=== PATIENT | male | born 1955 | race Caucasian/White ===

== ENCOUNTER 2018-11-21 10:36 | Inpatient (IN) | payer OTHER ==
[~2018-11-21] VITALS: Ht 172.7 cm; Wt 110.0 kg
[~2018-11-21 10:36] MED LIST: THE PO
[2018-11-21 11:40] LABS: CALCIUM 9.7 mg/dL (8.5-10.1); CARBON DIOXIDE 31.5 mmol/L (21-32); CHLORIDE SERUM 97 mmol/L (98-107); CREATININE SERUM 1.5 mg/dL (0.7-1.3); GFR1 50 mL/min; GLUCOSE SERUM 252 mg/dL (74-106); POTASSIUM SERUM 3.5 mmol/L (3.5-5.1); SODIUM SERUM 141 mmol/L (136-145)
[2018-11-21] MEDS ORDERED: COZ25 PO (11:51)
[2018-11-21] MEDS ORDERED: FLO4 PO (11:51)
[2018-11-21] MEDS ORDERED: APRISO0.375 G1 PO (11:51)
[2018-11-21 11:52] LABS: ALKALINE PHOSPHATASE 100 U/L (46-116); ALT/SGPT 21 U/L (16-63); AST/SGOT 17 U/L (15-37); BILIRUBIN TOTAL 0.9 mg/dL (0.20-1.00); C REACTIVE PROTEIN 8.5 mg/dL (<=0.9)
[2018-11-21] MEDS ORDERED: GLUCOVANCE1 TA2 PO (11:52)
[2018-11-21] MEDS ORDERED: LIPI20 PO (11:53)
[2018-11-21 11:54] LABS: CK-MB 4.3 ng/mL (0-3.6)
[2018-11-21] MEDS ORDERED: BAYER ASPIRIN C81 MG PO (11:54)
[2018-11-21] MEDS ORDERED: JARDIANCE10 MG PO (11:54)
[2018-11-21] MEDS ORDERED: MOBIC15 MG PO (11:54)
[2018-11-21 11:55] LABS: TOTAL PROTEIN, SERUM 8.5 g/dL (6.4-8.2)
[2018-11-21] MEDS ORDERED: CARVEDILOL3.125 M1 PO (11:55)
[2018-11-21 11:57] LABS: microscopic required? NO
[2018-11-21 11:59] LABS: T3 TOTAL 0.9 ng/mL
[2018-11-21 12:00] LABS: BASOPHIL % 0.1 % (0-2); PLATELET COUNT 258 x10^3mcL (130-400)
[2018-11-21 12:11] LABS: RED CELL DISTRIBUTION WIDTH 14.6 % (11.5-14.5)
[2018-11-21 12:17] LABS: FREE T4 0.95 ng/dL (0.76-1.46); FREE THYROXINE INDEX 2.5 ug/dL (1.4-4.5); T4(THYROXINE) 7.6 ug/dL (4.7-13.3)
[2018-11-21 12:34] LABS: urine erythrocyte NEGATIVE (NEGATIVE)
[2018-11-21 13:11] LABS: ERYTHROCYTE SED RATE 6 mm/hr (0-20)
[2018-11-21 15:10] LABS: CHOLESTEROL/HDL RATIO 3.9; PHOSPHOROUS 5.2 mg/dL (2.5-4.9)
[2018-11-21 15:43] VITALS: BP 156/62
[2018-11-21 15:52] VITALS: Ht 172.7 cm; Wt 110.0 kg
[2018-11-21 16:03] LABS: AMPHETAMINE QUAL UR POSITIVE (See below)
[2018-11-21 20:56] VITALS: BP 112/58
[2018-11-22 06:20] VITALS: BP 127/62
[2018-11-22 06:46] LABS: BASOPHIL % 0.5 % (0-2); PLATELET COUNT 210 x10^3mcL (130-400)
[2018-11-22 07:16] LABS: CALCIUM 8.4 mg/dL (8.5-10.1); CARBON DIOXIDE 27.8 mmol/L (21-32); CHLORIDE SERUM 108 mmol/L (98-107); CREATININE SERUM 1.2 mg/dL (0.7-1.3); GFR1 > 60 mL/min; GLUCOSE SERUM 108 mg/dL (74-106); PHOSPHOROUS 2.8 mg/dL (2.5-4.9); POTASSIUM SERUM 4.7 mmol/L (3.5-5.1); SODIUM SERUM 145 mmol/L (136-145)
[2018-11-22 08:25] LABS: RED CELL DISTRIBUTION WIDTH 14.8 % (11.5-14.5)
[2018-11-22 09:20] VITALS: BP 129/64
[2018-11-22 17:45] VITALS: BP 138/76
[2018-11-22 21:11] VITALS: BP 132/70
[2018-11-23 06:00] VITALS: BP 140/71
[2018-11-23 07:32] LABS: BASOPHIL % 0.2 % (0-2); PLATELET COUNT 225 x10^3mcL (130-400)
[2018-11-23 07:38] LABS: CALCIUM 8.1 mg/dL (8.5-10.1); CARBON DIOXIDE 25.1 mmol/L (21-32); CHLORIDE SERUM 108 mmol/L (98-107); CREATININE SERUM 1.1 mg/dL (0.7-1.3); GFR1 > 60 mL/min; GLUCOSE SERUM 101 mg/dL (74-106); PHOSPHOROUS 3.2 mg/dL (2.5-4.9); POTASSIUM SERUM 4.5 mmol/L (3.5-5.1); SODIUM SERUM 142 mmol/L (136-145)
[2018-11-23 07:39] LABS: RED CELL DISTRIBUTION WIDTH 14.6 % (11.5-14.5)
[2018-11-23 09:45] VITALS: BP 134/69
[2018-11-23 17:19] VITALS: BP 143/66
[2018-11-23 21:15] VITALS: BP 128/65
[2018-11-24 06:00] VITALS: BP 158/81
[2018-11-24 06:32] LABS: CALCIUM 8.2 mg/dL (8.5-10.1); CARBON DIOXIDE 26.8 mmol/L (21-32); CHLORIDE SERUM 104 mmol/L (98-107); GFR1 > 60 mL/min; GLUCOSE SERUM 141 mg/dL (74-106); POTASSIUM SERUM 4.3 mmol/L (3.5-5.1); SODIUM SERUM 138 mmol/L (136-145)
[2018-11-24 06:57] LABS: BASOPHIL % 0.3 % (0-2); PLATELET COUNT 201 x10^3mcL (130-400); RED CELL DISTRIBUTION WIDTH 14.5 % (11.5-14.5)
[2018-11-24 09:23] VITALS: BP 146/47
[2018-11-24] MEDS ORDERED: NORCO1 TA2 PO (10:27)
[2018-11-24] MEDS ORDERED: BACTROBAN21 (10:33)
[2018-11-24] MEDS ORDERED: HIBICLENS118 ML TOP (10:34)
[2018-11-24 11:43] VITALS: BP 146/47
== END 2018-11-24 14:34 | disposition home or self-care (01) | DRG 710 ==
LOC: ED 10:36 → MU 14:10 → DU 14:10 → MU 15:35
PROVIDERS: Specialist; Surgery; ADMIT Family Medicine
PROC: 0WUF0JZ Supplement Abdominal Wall with Synthetic Substitute, Open Approach (ICD-10-PCS; principal; 2018-11-22 15:00)
DX: A41.9 Sepsis, unspecified organism (principal); N17.0 Acute kidney failure with tubular necrosis; K42.0 Umbilical hernia with obstruction, without gangrene; E11.9 Type 2 diabetes mellitus without complications; F15.99 Other stimulant use, unspecified with unspecified stimulant-induced disorder; I10 Essential (primary) hypertension; R91.1 Solitary pulmonary nodule; Z68.37 Body mass index [BMI] 37.0-37.9, adult; Z79.84 Long term (current) use of oral hypoglycemic drugs
CPT/HCPCS: 36600; 82962; 84439; 97116-GP; 97530-GP; 99406; C1781; J0330; J2175; J2250; J2405; J2543; J2704; J2765; J3010; J3490; J7030; Q0092

== ENCOUNTER 2018-11-27 09:46 | Inpatient (IN) | payer OTHER ==
[~2018-11-27] VITALS: Ht 172.7 cm; Wt 106.0 kg
[~2018-11-27 09:46] MED LIST changes: +APRISO0.375 G1 PO; +BACTROBAN21; +BAYER ASPIRIN C81 MG PO; +CARVEDILOL3.125 M1 PO; +COZ25 PO; +FLO4 PO; +GLUCOVANCE1 TA2 PO; +HIBICLENS118 ML TOP; +JARDIANCE10 MG PO; +LIPI20 PO; +MOBIC15 MG PO; +NORCO1 TA2 PO
[2018-11-27 09:51] VITALS: Ht 172.7 cm; Wt 106.0 kg
[2018-11-27 10:22] LABS: CALCIUM 9.3 mg/dL (8.5-10.1); CARBON DIOXIDE 32.7 mmol/L (21-32); CREATININE SERUM 1.5 mg/dL (0.7-1.3)
--- NOTE | 2018-11-27 10:25 | NUR ---
DR VAZQUEZ COMPLETED MSE AND PER PT AND AT BEDSIDE PT WAS HERE LAST AND HAD HERNIA SURGERY, PT HAS MULTIPLE PAULO ACCROSS ABDOMEN, INTACT, NO DRAINAGE NOTED AT THIS TIME. PER PT HE HAS ONE BM SINCE HE HAS BEEN HOME FROM SURGERY, PT REPORTING VOMITING THAT STARTED YESTERDAY AND PT ONLY ATE JELLO, PAIN IS 5/10 AND HAS HAD MULTIPLE EPISODES OF BROWN VOMIT. PT IS ALERT AND ORRIENTED, BREATHING IS UNLABORED AND EVEN, REPORTS SHE DID NOT BRING THE PATIENTS MEDICATIONS BECAUSE SHE DOES NOT KNOW WHERE THEY ARE. PT ON INSPECTOR FINAL ASSEMBLY CONVEYOR LINE AND I WILL CONTINUE TO MONITOR PT.
[2018-11-27 10:27] LABS: BILIRUBIN TOTAL 0.5 mg/dL (0.20-1.00); TOTAL PROTEIN, SERUM 7.2 g/dL (6.4-8.2)
[2018-11-27 10:28] LABS: ALBUMIN 3.1 g/dL (3.4-5.0)
[2018-11-27 10:32] LABS: PLATELET COUNT 335 x10^3mcL (130-400)
[2018-11-27 10:47] LABS: RED CELL DISTRIBUTION WIDTH 14.6 % (11.5-14.5)
--- NOTE | 2018-11-27 11:14 | NUR ---
PT RESTING COMFORTABLY IN BED WITH AT BEDSIDE.
--- NOTE | 2018-11-27 11:33 | NUR ---
PT OFF THE FLOOR TO CT
[2018-11-27 12:10] LABS: BAND NEUTROPHIL 18 % (0-10); BASOPHIL 0 % (0-2); MONOCYTE 10 % (0-7); SEGMENTED NEUTROPHILS 62 % (37-75)
[2018-11-27 12:14] LABS: PLATELET MORPHOLOGY LARGE PLATELET SEEN; rbc morphology (normal/abnorm) NORMAL (NORMAL)
--- NOTE | 2018-11-27 13:59 | NUR ---
PT MED REC DONE BASED OF WHT PT CAN REMEMBER. PT UNSURE WHAT ALL MEDS HE TAKES
[2018-11-27 14:07] LABS: microscopic required? NO
--- NOTE | 2018-11-27 14:07 | NUR ---
CALLED REPORT TO MELVILMA, ALL QUESTIONS ADDRESSED AT THIS TIME.
[2018-11-27 14:21] LABS: UA SPECIFIC GRAVITY 1.015 (1.005-1.035); urine erythrocyte NEGATIVE (NEGATIVE)
[2018-11-27 15:30] VITALS: BP 134/77
--- NOTE | 2018-11-27 15:53 | NUR ---
RECEIVED PT FROM ER. PT ADMIT FOR SBO, PT IS A/O X4, VERBAL RESPONSIVE, BUT VERY DROWSY AT THIS MOMENT, LUNG SOUND DIM MONIKA BASE, DENY ANY SOB, PO2 100% IN ROOM AIR, PT DENY ANY CHEST PAIN OR DISCOMFORT, BOWEL SOUND PRESENT ALL 4 QUADRANTS, DISTENTED. THERE IS S/P SURGICAL WOUND AT MID ABD, STAPLE INTACT, CONSUMER RELATIONS SPECIALIST, PEDAL PUSLE PRESENT BOTH FEET, NO EDEMA, IV AT RIGHT AC, NO LEAKING, NO INFILTRAITON. THERE IS MULTIPLE RED DISCOLORATION SPOT AT MONIKA INNER THIGH. PT IS ON NG SUCTION. ALL ADLS ASSIST, ALL NEED MET, CALL LIGHT IN REACH, WILL CONTINUE TO MONITOR.
--- NOTE | 2018-11-27 17:02 | NUR ---
AT 1440 - PATIENT ARRIVED FROM ER. SETTLED IN BED AND ORIENTD TO SURROUNDINGS. ADMITTED WITH DX OF SMALL BOWEL OBSTRUCTION. PATIENT IS ORIENTED. NG TUBE TO R NARES CONNECTED TO LOW INTERMITTENT SUCTION. PATIENT HAS LARGE AMOUNTS OF BROWN ASPIRATE. ABDOMEN DISTENDED. BOWEL SOUNDS ACTIVE AND PATIENT PASSING GAS. SEEN BY MIHIR ROONEY. IV INFUSING NS AT 150 ML/HR FOR 1 L. AT 1500 - SEEN BY DR RICHARDSON. NG TUBE IRRIGATED BY DOCTOR AND RECONNECTED TO SUCTION. DR RICHARDSON NOTED SLIGHT REDDNESS AND INFLAMMATION OF SURGICAL INCISION. OPEN TO AIR. PAIENT WASHED AND MADE COMFORTABLE. AT 1600 - COMMENCED ON IV ROCEPHIN. FIRST DOSE IN PROGRESS. AT 1615 - TOTAL OF 800 ML OUT VIA NG TUBE SINCE ADMISSION TO FLOOR.
[2018-11-27 17:27] VITALS: BP 130/65
--- NOTE | 2018-11-27 18:52 | NUR ---
VSS. AFEBRILE. NO C/O PAIN. NG TUBE REMAINS ON LOW INTERMITTENT SUCTION WITH LESS ASPIRATE IN THE LAST 2 HOURS. IV INFUSING NS AT 150 ML/HR FOR 1 LITER THEN CHANGE TO 100ML/HR. VOIDING IN URINAL. NPO. WILL ENDORSE CARE TO NIGHT NURSE.
--- NOTE | 2018-11-27 19:30 | NUR ---
RECIEVED PATIENT AT START OF SHIFT SLEEPING, AROUSABLE WITH VERBAL STIMULI. PATIENT IS ALERT AND OREIENTED X4. DENIES PAIN. NO SOB ON RA, LUNGS DIMINISHED BILATERALLY. NG TUBE IN PLACE CONNECTED TO INTERMIITENT LOW SUCTION. DARK BROWN/GREEN FLUID DRAINING, 60 MLS IN CONTIANER AT START OF SHIFT. ABDOMEN IS DISTENDED BUT SOFT. BOWEL SOUNDS ACTIVE. LONG HORIZONTAL INCISION WITH PAULO IN PLACE, WELL APPROXIMATED ACROSS ABDOMEN FROM HERNIA REPAIR LAST WEEK. SLIGHT ERYTHEMA NOTED ACROSS INCISION, NO DRAINAGE. BELOW INCISION IS SOME SORT OF HEALING WOUND OF [place]OWN ORIGIN, PINK AND CLOSED. BOTH ARE CAROLINE. PULSES ARE STRONG. NO EDEMA NOTED. BED LOCKED AND IN LOWEST POSITION. CALL LIGHT AND BEDSIDE TABLE WITHIN REACH. BED LOCKED AND IN LOWEST POSITION. WILL CONTINUE TO MONITOR.
[2018-11-27 20:30] VITALS: BP 117/69
--- NOTE | 2018-11-27 20:30 | NUR ---
PATIENT'S CURRENT 02 SAT IS 86%. NC APPLIED AT 5L, INCREASING 02 SAT TO 92%. LUNGS ARE DIMINISHED BILATERALLY. WILL INFORM MD AND GET ORDER FOR RT PROTOCOL.
[2018-11-27 21:00] VITALS: BP 139/67
--- NOTE | 2018-11-27 22:10 | NUR ---
RT SAW PATIENT. PATIENT NOW AT 4L NC SATTING 95%. NO COMLAINT OF PAIN. APPEARS COMFORTABLE. CALL LIGHT WITHIN REACH.
[2018-11-28 04:58] VITALS: BP 139/67
--- NOTE | 2018-11-28 06:51 | NUR ---
PATIENT'S NG TUBE OUTPUT OVERNIGHT WAS 900 MLS OF DARK GREEN FLUID. PATIENT DENIES PAIN. NO SOB NOTED ON 4L NC, SATTING 94%. PATIENT PROVIDED WITH ORAL CARE. NO ACUTE EVENTS OVERNIGHT. WILL ENDORSE CARE TO MORNING NURSE.
[2018-11-28 06:55] LABS: CALCIUM 8.2 mg/dL (8.5-10.1); CARBON DIOXIDE 33.6 mmol/L (21-32); CHLORIDE SERUM 105 mmol/L (98-107); CREATININE SERUM 1.2 mg/dL (0.7-1.3); GFR1 > 60 mL/min; GLUCOSE SERUM 162 mg/dL (74-106); POTASSIUM SERUM 3.7 mmol/L (3.5-5.1); SODIUM SERUM 149 mmol/L (136-145)
--- NOTE | 2018-11-28 07:30 | NUR ---
RECEIVED PT IN BED A/A/OX4 DENIES ANY SANTANA. RESP EVEN AND UNLABORED WITH DIMINSIHED BS BILAT, ON O2 AT 4L/MIN VIA NC. DENIES ANY SOB/CP/PRESSURE. ENCOURAGE DEEP BREATHIGN EXERCISES. NGT TO RT NOSTRIL TO LIS WITH GREENISH BILISH DRAINAGE IN CANISTER. DENIES ANY N/V AT THIS TIME. ABD SLIGHTLY DISTENDED TENDER TO TOUCH WITH +BS. S/P HERNIA REPAIR LAST WEEK PRIOR TO ADMISION WITH LATERAL SX INCISION ACROSS ABD WITH PAULO, CAROLINE. FULL ACTIVE ROM WITH MILD GEN WEAKNESS, WITH ORDER FOR PT EVAL. DENIES ANY PAIN OR DISCOMFORT. CALL LIGHT IN REACH NEEDS ATTENDED TO.
[2018-11-28 07:43] LABS: PLATELET COUNT 259 x10^3mcL (130-400)
[2018-11-28 08:49] LABS: RED CELL DISTRIBUTION WIDTH 14.6 % (11.5-14.5)
[2018-11-28 09:46] VITALS: BP 140/70
--- NOTE | 2018-11-28 10:15 | NUR ---
NOTED ORDER TO D/C NGT. DR. RICHARDSON PAGE TO COMFIRM SINCE PT HAD LARGE OUTPUT FROM NGT THIS AM ABOUT 500ML ALREADY. WAS MADE AWARE THAT DR. RICHARDSON WAS IN OR WITH BACK TO BACK CASES. REQUESTED FOR MD TO CALL THE FLOOR WHEN HE HAD A CHANCE. NGT DISCONNECTED FROM SUCTION AT THIS TIME. PT MADE AWARE OF ORDER AND STATED "I DON'T WANT IT TAKEN OUT UNLESS WE KNOW FOR SURE IT IS NOT GOING BACK IN". WILL CONT TO WAIT FOR DR. RICHARDSON TO RETURN CALL.
[2018-11-28 11:07] LABS: ATYPICAL LYMPH 3 %; BAND NEUTROPHIL 24 % (0-10); BASOPHIL 0 % (0-2); MONOCYTE 14 % (0-7); SEGMENTED NEUTROPHILS 50 % (37-75)
[2018-11-28 11:09] LABS: PLATELET MORPHOLOGY PLATELETS NORMAL; rbc morphology (normal/abnorm) ABNORMAL (NORMAL)
--- NOTE | 2018-11-28 13:00 | NUR ---
DR. RICHARDSON AT THE STATION MADE AWARE OF HIGH OPUTPUT FROM NGT AND THAT IT HAD BEEN LEFT IN PLACE UNTIL IT HAD BEEN CLARIFIED. RECEIVED ORDERED TO KEEP NGT IN PLACE AND CONNECTED TO DRAINAGE BAG TO GRAVITY. ORDER CARRIED OUT.
--- NOTE | 2018-11-28 13:30 | NUR ---
NOTED CHANGE IN WRITEN ORDERS BY DR. RICHARDSON. DISCONNECTED NGT FROM DRAINAGE BAG AND KEPT CLAMPED. NGT TO BE CONNECTED TO SUCTION X10MIN EVERY 6HRS. ADVANCED NGT TO NEXT MARTHA ORDERED. WILL CONT TO MONITOR.
--- NOTE | 2018-11-28 13:40 | NUR ---
DR. MUHAMMAD PAGED TO OBTAIN FULL ADMIT ORDERS AND PAIN MEDS. AWAITING CALL BACK.
--- NOTE | 2018-11-28 14:15 | NUR ---
NO CALL BACK YET FROM DR. JB JONES PAGED AGAIN. PT C/O ABD PAIN AWAITING FOR PAIN MEDS AT THIS TIME.
--- NOTE | 2018-11-28 16:00 | NUR ---
AFTER 6HRS OF CLAMPING NGT, CONNECTED NGT TO SUCTION ORDERED. REMOVED 150MLS OF GREENISH BILE DRAINAGE IN SUCTION CANISTER. PT DENIED ANY PAIN/DISCOMFORT. CALL LIGHT IN REACH NEEDS ATTENDED TO.
[2018-11-28 16:15] VITALS: BP 149/78
--- NOTE | 2018-11-28 18:18 | NUR ---
PT RESTING COMFORTABLY AT THIS TIME. DENIES ANY DISCOMFORT. NO EPISODES OF N/V AT THIS TIME. NGT IN PLACE CLAMPED AT THIS TIME. HAD TOTAL 950ML OUTPUT FOR SHIFT. TOLERATING SIPS OF WATER PRN. NOTED IV BAG WAS LEAKING D/T A PUNCTURE IN BAG. NEW IV BAG INSERTED. CALL LIGHT IN REACH NEEDS ATTENDED TO. ENCOURAGE INCREASING OOB ACTIVITY.
--- NOTE | 2018-11-28 20:01 | NUR ---
SHIFT REASSESSMENT DONE.PATIENT ALERT AND ORIENTED.O2 AT 4 LITERS.NGT TO LOW SUCTION,CLAMPED,WILL OPEN AT 2200 X 10 MINUTES THEN CLAMP AGAIN.NO VOMITING SO FAR.1/2 NS WITH 20 MEQ KCL LAC IV SITE GOOD.MEDSURG PATIENT.ABD SURGICAL SITE PAULO,INNER THIGH REDNESS.PATIENT ON LOVENOX.VOIDING.
[2018-11-28 20:58] VITALS: BP 148/71
--- NOTE | 2018-11-28 22:00 | NUR ---
NGT CONNECTED TO CONTINOUS SUCTION FOR 10 MINUTES.
--- NOTE | 2018-11-28 22:10 | NUR ---
NO OUTPUT FROM NGT,CLAMPED AGAIN,WILL RELEASE AGAIN AT 4 AM.
--- NOTE | 2018-11-28 22:30 | NUR ---
PATIENT RECORD SAY NOVEMBER 21 LAST WEEK,POSITIVE MRSA NARES.CHARGE NURSE CARMEL MADE AWARE.ADMITTING NURSE YESTERDAY MADE AWARE.HX.WILL WAIT FOR RECENT MRSA FROM YESTERDAY.WILL PUT ON MRSA PRECAUTION/CONTACT.
--- NOTE | 2018-11-28 22:49 | NUR ---
VOIDING PER URINAL.MAGDY URINE.
--- NOTE | 2018-11-28 23:47 | NUR ---
EXTENSION TUBING APPLIED LAC FOR EASIER HANDLING BOTH NURSE AND PATIENT.PATIENT VERY COOPERATIVE.MADE AWARE THAT WE HAVE TO ISOLATE HIM.
--- NOTE | 2018-11-29 02:34 | NUR ---
ICE CHIPS REQUESTED,JUST TO WET LIPS AND MOUTH,REMAINS NPO.NO VONITING NOTED.
--- NOTE | 2018-11-29 05:51 | NUR ---
I AND O MEASURED.IVF INFUSING.NGT WITH ONLY 100 CC OUTPUT,CLEAR RETURN,CLEAR GREENISH.
[2018-11-29 06:05] VITALS: BP 147/71
[2018-11-29 06:26] LABS: PLATELET COUNT 244 x10^3mcL (130-400)
[2018-11-29 06:37] LABS: RED CELL DISTRIBUTION WIDTH 14.9 % (11.5-14.5)
[2018-11-29 06:55] LABS: ALKALINE PHOSPHATASE 52 U/L (46-116); ALT/SGPT 10 U/L (16-63); AST/SGOT 16 U/L (15-37); BILIRUBIN TOTAL 0.3 mg/dL (0.20-1.00); CALCIUM 8.5 mg/dL (8.5-10.1); CARBON DIOXIDE 31.1 mmol/L (21-32); CHLORIDE SERUM 107 mmol/L (98-107); CREATININE SERUM 0.9 mg/dL (0.7-1.3); GFR1 > 60 mL/min; GLUCOSE SERUM 121 mg/dL (74-106); POTASSIUM SERUM 3.8 mmol/L (3.5-5.1); SODIUM SERUM 147 mmol/L (136-145)
[2018-11-29 06:56] LABS: ALBUMIN 2.2 g/dL (3.4-5.0); TOTAL PROTEIN, SERUM 5.7 g/dL (6.4-8.2)
--- NOTE | 2018-11-29 07:15 | NUR ---
RECEIVED PATIENT FROM CERTIFIED VETERINARY TECHNICIAN NURSE. PATIENT IS AWAKE, ALERT AND ORIENTED. ON 4L NC, BREATHING EVEN AND UNLABORED. CONTACT PREC IN PLACE. DENIES SOB. DENIES CHEST PAIN AND PRESSURE. NG TUBE NOTED TO RIGHT NARE, CLAMPED AT THIS TIME. PATIENT IS NPO DUE TO SBO. DENIES ABD PAIN AND NAUSEA. IV NOTED TO LAC, IVF INFUSING WELL ORDERED, NO S/S ERYTHEMA AT SITE. CALL LIGHT WITHIN EASY REACH. WILL CONTINUE PLAN OF CARE.
[2018-11-29 08:13] VITALS: BP 150/73
--- NOTE | 2018-11-29 09:56 | NUR ---
NG TUBE PLACED ON HIGH CONTINUOUS SUCTION PER ORDERS. OUTPUT GREEN/CLEAR IN COLOR. WILL MONITOR.
--- NOTE | 2018-11-29 10:50 | NUR ---
PATIENT TAKEN TO CT AT THIS TIME.
[2018-11-29 11:45] VITALS: BP 146/70
--- NOTE | 2018-11-29 12:05 | NUR ---
NG TUBE DC'D AT THIS TIME PER DR MEHTA ORDER. PATIENT TOLERATED WELL. WILL CONTINUE TO MONITOR.
--- NOTE | 2018-11-29 13:46 | NUR ---
Initial Nutrition Assessment- 251/A PRAVEEN LEROY IA Dx: SBO PMHx: dm2, htn, hld, glaucoma, hernia repair , bph PSHx: s/p repair of hernia repair (11/22/18) Labs: (11/29) BG 121H, BUN 23H, NA 147H, WBC 13.0H Meds: D50%, Humulin, lovenox, reglan, zofran Diet: NPO (gastric retention), 11/30 ([facility] ordered in advance) PO Intake: Ht:172.72 cm (68") Wt: 106 kg (233#) BMI: 35.5 kg/m2 (obesity) IBW: 154# (70 kg) %IBW: 151 UBW: Unable to access Age: 63/M Food Allergies: NKFA Skin: MONIKA inner thigh redness. S/P Hernia repair prior admission Pepe: 20 Edema: none GI: last BM 11/24 Trigger: N/V/D x 3d, poor PO> 3d Per H&P, This is a 63-year old male will be admitted to [facility] who was recently discharged from this hospital on 11/24/18 and was admitted for incarcerated hernia and status post hernia repair with mesh placed. Patient now presents to the ER with a 1 week history of off and on lower abdominal pain associated with nausea, vomiting, and constipation. Per progress note 11/28, NG tube is in place. Imaging: RAD/XR ABD: KUB (AP/PA) (11/28) Findings: There is marked improvement in previously seen gas distended loops of small bowel. Enteric tube terminates just below the gastroesophageal junction. There is some increased fecal material in the region of the rectum. RDN visit (11/29): Pt was sleeping. Information was obtained from KEN Xiong. She said that pt does not have any N/V/D/C at this time and pt is NPO due to SBO. Problem with: N: no V: no D: no C: no Problems with: Chewing/ Swallowing: unable to access Current appetite: unable to access Recent wt change: unable to access Vitamin/Supplement use: unable to access Special diet at home: unable to access Physical activity: unable to access Education: no diet education provided as due to pt's medical condition and pt sleeping. Estimated Nutritional Needs Based on ideal body weight 70 kg Energy: 6022-7904 kcal/d (25-30 kcal/kg-maintenance) Protein: 70-84 g/d (1.0-1.2 g/kg)-maintenance and preservation of lean body mass Fluid: 2850-6074 ml/d (1 ml/kcal-fluid balance) or per doctor Nutrition Diagnosis 1. Inadequate oral intake related to SBO as evidenced by NPO Intervention 1. Progress to CCHO diet when medically appropriate /tolerated. 2. If SBO continues and oral intake is not medically appropriate, consider NG tube feeding Glucerna 1.2 @ 20 ml/hr with goal of 60 ml/hr. Goal rate will provide 1700 kcal and 86 g protein. This would meet 100% of calorie and protein needs. Monitor/Evaluate Goal: PO/TF intake at least 75% of estimated needs Monitor: PO/TF intake/tolerance, Labs, GI function F/U in 2-3 days as high risk 12/01-
[2018-11-29 14:18] LABS: BAND NEUTROPHIL 3 % (0-10); BASOPHIL 0 % (0-2); MONOCYTE 2 % (0-7); SEGMENTED NEUTROPHILS 87 % (37-75)
[2018-11-29 14:19] LABS: PLATELET MORPHOLOGY PLATELETS INCREASED
[2018-11-29 14:20] LABS: rbc morphology (normal/abnorm) ABNORMAL (NORMAL)
[2018-11-29 16:09] VITALS: BP 115/64
--- NOTE | 2018-11-29 18:44 | NUR ---
PATIENT TOLERATED CLEAR LIQ DIET WELL. DENIES NAUSEA AND ABD PAIN. PATIENT STATES HE IS FREQ. PASSING GAS RECTALLY. PATIENT CARE TO BE ENDORSED TO DRY CLEANING MACHINE OPERATOR HELPER NURSE.
--- NOTE | 2018-11-29 19:20 | NUR ---
AOX4. MED SURG. LUNGS DIMINISHED ON RA. PULSES PALPABLE. NO EDEMA. BOWEL SOUNDS HYPOACTIVE. PT STATES HE IS PASSING GAS. TOLERATING CLEAR LIQUIDS. VOIDS FREELY. AMBULATORY. SURGICAL INCISION TO ABD WITH PAULO, CAROLINE, NO REDNESS OR SWELLING. REDNESS TO BILTERAL INNER THIGHS. DENIES PAIN. SL TO LAC, PATENT, CDI. BED IN LOWEST POSITION, 2 SIDE RAILS UP, CALL LIGHT IN REACH. INSTRUCTED TO CALL FOR ASSISTANCE.
[2018-11-29 20:41] VITALS: BP 128/62
--- NOTE | 2018-11-30 01:40 | NUR ---
RESTING IN BED WITH EYES CLOSED. BREATHING EVEN AND UNLABORED. NO ACUTE DISTRESS NOTED. WILL CONTINUE TO MONITOR.
[2018-11-30 05:34] VITALS: BP 124/59
--- NOTE | 2018-11-30 06:01 | NUR ---
PT CONTINUES TO PASS GAS, NO BM. NO ACUTE CHANGES. WILL ENDORSE TO ONCOMING RN,
[2018-11-30 06:24] LABS: ALKALINE PHOSPHATASE 44 U/L (46-116); ALT/SGPT 12 U/L (16-63); AST/SGOT 11 U/L (15-37); BILIRUBIN TOTAL 0.28 mg/dL (0.20-1.00); CARBON DIOXIDE 29.6 mmol/L (21-32); CHLORIDE SERUM 107 mmol/L (98-107); CREATININE SERUM 0.9 mg/dL (0.7-1.3); GFR1 > 60 mL/min; POTASSIUM SERUM 3.3 mmol/L (3.5-5.1); SODIUM SERUM 144 mmol/L (136-145)
[2018-11-30 06:57] LABS: GLUCOSE SERUM 131 mg/dL (74-106)
[2018-11-30 07:03] LABS: ALBUMIN 2.1 g/dL (3.4-5.0); TOTAL PROTEIN, SERUM 4.9 g/dL (6.4-8.2)
[2018-11-30 07:08] LABS: BASOPHIL % 0.3 % (0-2); PLATELET COUNT 267 x10^3mcL (130-400); RED CELL DISTRIBUTION WIDTH 14.6 % (11.5-14.5)
--- NOTE | 2018-11-30 07:15 | NUR ---
RECEIVED PATIENT FROM MILLING SUPERVISOR NURSE. PATIENT IS AWAKE, ALERT AND ORIENTED. DENIES ABD PAIN AND DISTENTION. DENIES NAUSEA/VOMITING. PASSING GAS FREQUENTLY. IV TO LAC SALINE LOCKED, NO S/S ERYTHEMA AT SITE. CALL LIGHT WITHIN EASY REACH. WILL CONTINUE PLAN OF CARE.
[2018-11-30 08:40] VITALS: BP 125/46
--- NOTE | 2018-11-30 08:53 | NUR ---
PATENT HAD LARGE FORMED BM AT THIS TIME.
--- NOTE | 2018-11-30 10:27 | NUR ---
DR ARCEO AT BEDSIDE TO REDUCE RIGHT ANKLE AT THIS TIME. PATIENT MEDICATED WITH MORPHINE AND ZOFRAN PRIOR TO REDUCTION.
--- NOTE | 2018-11-30 10:27 | NUR ---
DR JOHNSON AT BEDSIDE TO COMPLETE NEEDLE ASPIRATION OF FLUID AROUND UMBILICUS. 60CC OF SEROUS DRAINAGE. DRESSING APPLED TO ABD AT INJECTION SITE. PATIENT TOLERATED WELL. WILL CONTINUE TO MONITOR.
--- NOTE | 2018-11-30 10:43 | NUR ---
ABDOMINAL BINDER APPLIEDA AT THIS TIME.
[2018-11-30 16:38] VITALS: BP 119/66
--- NOTE | 2018-11-30 19:14 | NUR ---
PATIENT RESTING PEACEFULLY. NO ACUTE DISTRESS. PATIENT CARE ENDORSED TO BAG SEALER NURSE.
--- NOTE | 2018-11-30 19:46 | NUR ---
AOX4. MED SURG. LUNGS DIMINISHED ON RA. PULSES PALPABLE. NO EDEMA. BOWEL SOUNDS ACTIVE. PT REPORTS BM TODAY. TOLERATING FULL LIQUIDS. VOIDS FREELY. AMBULATORY. SURGICAL INCISION TO ABD WITH PAULO, NO REDNESS OR SWELLING. DRESSING TO UMBILICUS CDI. REDNESS TO BILTERAL INNER THIGHS. DENIES PAIN. SL TO LAC, PATENT, CDI. PT REPORTS NEW ONSET NUMBNESS TO RLE THROUGHOUT DAY, DR OLVERA NOTIFIED VIA [employer]. CONTACT PRECAUTIONS IN PLACE. BED IN LOWEST POSITION, 2 SIDE RAILS UP, CALL LIGHT IN REACH. INSTRUCTED TO CALL FOR ASSISTANCE.
[2018-11-30 20:55] VITALS: BP 137/56
--- NOTE | 2018-12-01 03:13 | NUR ---
RESTING IN BED WITH EYES CLOSED. BREATHING EVEN AND UNLABORED. NO ACUTE DISTRESS NOTED. WILL CONTINUE TO MONITOR.
[2018-12-01 06:07] VITALS: BP 135/70
--- NOTE | 2018-12-01 06:14 | NUR ---
NO ACUTE CHANGES OVERNIGHT. WILL ENDORSE TO ONCOMING RN
[2018-12-01 06:22] LABS: BASOPHIL % 0.4 % (0-2); PLATELET COUNT 276 x10^3mcL (130-400); RED CELL DISTRIBUTION WIDTH 14.3 % (11.5-14.5)
[2018-12-01 06:33] LABS: ALKALINE PHOSPHATASE 48 U/L (46-116); ALT/SGPT 9 U/L (16-63); AST/SGOT 12 U/L (15-37); BILIRUBIN TOTAL 0.2 mg/dL (0.20-1.00); CALCIUM 8.2 mg/dL (8.5-10.1); CARBON DIOXIDE 28.1 mmol/L (21-32); CHLORIDE SERUM 109 mmol/L (98-107); CREATININE SERUM 0.8 mg/dL (0.7-1.3); GFR1 > 60 mL/min; GLUCOSE SERUM 166 mg/dL (74-106); POTASSIUM SERUM 3.8 mmol/L (3.5-5.1); SODIUM SERUM 145 mmol/L (136-145)
[2018-12-01 06:50] LABS: ALBUMIN 2.2 g/dL (3.4-5.0); TOTAL PROTEIN, SERUM 5.1 g/dL (6.4-8.2)
[2018-12-01] MEDS ORDERED: REG10 PO (08:55)
[2018-12-01] MEDS ORDERED: MIRUD PO (08:55)
[2018-12-01 09:00] VITALS: BP 107/77
--- NOTE | 2018-12-01 11:02 | NUR ---
AT 0705 - RECEIVED PATIENT FROM NIGHT NURSE. SLEEPING. RESPIRATIONS REGULAR. AT 0800 - HAS EATEN BREAKFAST. TOLERATING FULL LIQUID DIET. AT 0840 - PATIENT IS AWAKE, ALERT AND ORIENTED. NO C/O PAIN. ABDOMEN DISTENDED WITH ACTIVE BOWEL SOUNDS. ABDOMINAL BINDER IN PLACE. AT 0900 - RECEIVED DISCHARGE ORDERS. PATIENT TO DC HOME IN AFTERNOON IF ABLE TO TOLERATE SOLID FOOD FOR LUNCH. MAY SHOWER. AT 1015 - SEEN BY DR RICHARDSON. PAULO FROM ABDOMINAL INCISION REMOVED BY DR RICHARDSON. ISLAND DRESSING APPLIED. TO BE REPLACED AFTER SHOWER. PATIENT TO FOLLOW-UP WITH DR BRAVO AFTER DC.
--- NOTE | 2018-12-01 12:17 | NUR ---
PATIENT BACK IN ROOM FOLLOWING EGD UNDER MODERATE SEDATION. PATIENT IS AWAKE, ALERT AND ORIENTED. BP 111/66. HR 100. O2 SAT 98% ON ROOM AIR. PATIENT HAS BEEN ORDERED LUNCH.
[2018-12-01 12:18] VITALS: BP 111/66
[2018-12-01 13:45] VITALS: BP 111/66
--- NOTE | 2018-12-01 14:01 | NUR ---
Follow-up Nutrition Assessment- 251/A PRAVEEN LEROY FU Dx: SBO Labs: (12/01) BG 166H, ALB 2.2L Meds: D50%, Humulin, miralax, reglan, zofran Diet: (11/30) FLD, (12/01) Lunch: mechanically soft-chopped PO intake: (11/30) dinner 100%, breakfast 100% Weights: (11/28) 106 kg Skin: ABD incision with bernardo Pepe: 20 Edema: none Last BM: 11/30 Per H&P, This is a 63-year old male will be admitted to [facility] who was recently discharged from this hospital on 11/24/18 and was admitted for incarcerated hernia and status post hernia repair with mesh placed. Patient now presents to the ER with a 1 week history of off and on lower abdominal pain associated with nausea, vomiting, and constipation. Per progress note 11/28, NG tube is in place. Imaging: RAD/XR ABD: KUB (AP/PA) (11/28) Findings: There is marked improvement in previously seen gas distended loops of small bowel. Enteric tube terminates just below the gastroesophageal junction. There is some increased fecal material in the region of the rectum. RDN visit (12/01): Pt said that he has good appetite and does not have any N/V/D/C at this time. Pt said that he experiences some problem in chewing due to problems in dentition. RDN visit (11/29): Pt was sleeping. Information was obtained from KEN Xiong. She said that pt does not have any N/V/D/C at this time and pt is NPO due to SBO. Estimated Nutritional Needs Based on ideal body weight 70 kg Energy: 4427-8035 kcal/d (25-30 kcal/kg-maintenance) Protein: 70-84 g/d (1.0-1.2 g/kg)-maintenance and preservation of lean body mass Fluid: 6545-8595 ml/d (1 ml/kcal-fluid balance) or per doctor Nutrition Diagnosis 1. Inadequate oral intake related to SBO as evidenced by NPO (improved) Intervention 1. Change current diet order to CCHO (mechanically soft-chopped diet) since pt has DM, BG of 166. Monitor/Evaluate Previous goal: Progress to CCHO (not met) Goal: PO intake at least 75% of estimated needs Monitor: PO intake, Labs, GI function F/U in 3-5 days as moderate risk 12/04-12/06
--- NOTE | 2018-12-01 14:01 | NUR ---
1. Change current diet order to CCHO (mechanically soft-chopped diet) since pt has DM, BG of 166.
--- NOTE | 2018-12-01 14:22 | NUR ---
AT 1215 - PATIENT HAS HAD SHOWER. DRESSING TO ABDOMINAL INCISION CHANGED FOLLOWING SHOWER. IV IN LAC FELL OUT. CATHETER REMOVED INTACT. AT 1330 - [facility]. TOLERATED WELL. NO C/O NAUSEA OR ABDOMINAL PAIN. AT 1400 - SPOKE WITH DR DAVIS PER PHONE. INFOMED THAT PATIENT TOLERATED SOLID FOOD FOR LUNCH AND THAT DR RICHARDSON IS OK WITH PATIENT DISCHARGE HOME TODAY. HE WILL FINALIZE DC ORDERS.
--- NOTE | 2018-12-01 16:15 | NUR ---
AT 1500 - PRINTED DISCHARGE INSTRUCTIONS GIVEN AND EXPLAINED TO PATIENT. PRESCRIPTION PROVIDED. ABDOMINAL INCISION PHOTO DOCUMENTED. PATIENT INSTRUCTED IN CARE. PREPARED FOR DISCHARGE. AT 1605 - DISCHARGED HOME WITH FAMILY. ESCORTED TO DISCHARGE OFFICE BY ANTOINETTE.
== END 2018-12-01 16:05 | disposition home or self-care (01) | DRG 247 ==
LOC: ED 09:46 → MU 12:55
PROVIDERS: Emergency Medicine; Internal Medicine; ADMIT Family Medicine
DX: K56.7 Ileus, unspecified (principal); N17.0 Acute kidney failure with tubular necrosis; E44.1 Mild protein-calorie malnutrition; E87.0 Hyperosmolality and hypernatremia; E11.65 Type 2 diabetes mellitus with hyperglycemia; E86.0 Dehydration; D72.829 Elevated white blood cell count, unspecified; E78.5 Hyperlipidemia, unspecified; I10 Essential (primary) hypertension; Z79.84 Long term (current) use of oral hypoglycemic drugs; Z68.34 Body mass index [BMI] 34.0-34.9, adult
CPT/HCPCS: 82962; C9113; J0696; J1650; J1815; J1885; J2270; J2405; J2543; J2765; J7030; J7050; J8597; Q0092; Q9967